=== PATIENT | female | born 1995 | race Hispanic/Latino ===

== ENCOUNTER 2023-12-31 11:15 | Outpatient (CLI) | payer MEDICAID, SELFPAY ==
--- NOTE | ~2023-12-31 | US_ITS ---
EXAMINATION: US OB follow up DATE: 12/31/2023 11:44 INDICATION: Size greater than dates. TECHNIQUE: Real-time ultrasound of the pelvis was performed. COMPARISON: None. FINDINGS: There is a single living fetus in vertex presentation. The placenta is anterior, 8.9 cm from the cer vix. The cervical length is 3.3 cm on transabdominal images, which is normal. heart rate is 142 beats per minute (bpm). The amniotic fluid index is 17.5 cm, which is normal. The following biometric data were obtained: Biparietal diameter (BPD): 7.3 cm; head circumference (HC): 27.7 cm; abdominal circumference (AC): 25 .8 cm; femur length (FL): 5.4 cm. These measurements are concordant. Estimated weight is 1394 g +/- 209 g, which correlates with the 85th percentile when 03/23/24 is used as estimated date of delivery. As single measurements, these parameters are each equal to the following estimated gestational ages: BPD: 29 weeks 3 days. HC: 30 weeks 2 days. AC: 30 weeks 0 days. FL: 28 weeks 3 days. estimated gestational age based solely on measurements from this exam is 29 weeks 4 days +/- 2 weeks 0 days. IMPRESSION: 1. Single living fetus in vertex presentation. 2. Estimated weight is 1394 g +/- 209 g, which correlates with the 85th percentile when 4 is used as estimated date of delivery. Reviewed, dictated and finalized at location A. IMPRESSION: 1. Single living fetus in vertex presentation. 2. Estimated weight is 1394 g +/- 209 g, which correlates with the 85th percentile when 03/23/24 is used as estimated date of delivery.
== END 2023-12-31 11:16 ==
PROVIDERS: PCP Advanced Practice Midwife; Visit Provider Advanced Practice Midwife
DX: O36.63X0 Maternal care for excessive fetal growth, third trimester, not applicable or unspecified (principal)
CPT/HCPCS: 76816

== ENCOUNTER 2024-03-17 18:48 | Inpatient (IN) | payer OTHER, SELFPAY ==
[2024-03-17] VITALS (46 sets, daily range): BP systolic 57–151; BP diastolic 28–122; PULSE 88–123; O2SAT 94–98; BMI 31.8
[2024-03-17 21:10] LABS: Basophils Percent Auto 0.2 % (0.2-1.2); Eosinophils Percent Auto 0.1 % (0-4.4); Hematocrit 35.5 % (37.0-47.0); Hemoglobin 12.1 g/dL (12.0-15.0); Immature Granulocyte Absolute 0.05 K/mm3 (0.00-0.031); Immature Granulocyte Percent A 0.5 % (0-0.5); Lymphocytes Absolute Auto 2.29 K/mm3 (0.9-3.2); Lymphocytes Percent Auto 21.3 % (18.3-44.2); Mean Corpuscular HGB Conc 34.1 g/dl (32-36); Mean Corpuscular Hemoglobin 28.6 pg (26-34); Mean Corpuscular Volume 83.9 fl (80-100); Mean Platelet Volume 12.6 fl (7.4-10.4); Monocytes Absolute Auto 0.8 K/mm3 (0.1-0.6); Neutrophils Absolute Auto 7.6 K/mm3 (1.3-6.7); Neutrophils Percent Auto 70.9 % (45.5-73.1); Platelet Count Result 139 k/mm3 (150-375); Red Blood Count 4.23 M/mm3 (4.2-5.4); Red Cell Distribution Width 15.3 % (11.5-14.5); White Blood Count 10.8 K/mm3 (4.5-10.0)
[2024-03-17] MEDS: LACTATED RINGERS 1,000 ML 125 ML IV CONT (21:23)
[2024-03-17 21:38] LABS: Rapid Plasma Reagin Non-Reactive (NonReactive)
--- NOTE | 2024-03-17 21:56 | LDADM ---
This patient, Leighann Gould, was admitted to Labor/Delivery/Recovery 106 on 03/17/24 at 18:48. Plans for labor, pain management and were discussed with patient. Patient/family oriented to hospital policies and general routines including ID bracelet, bed and alarms, visiting hours, pain management, procedures, bathroom and other care routines, personal items, smoking policy, room service/diet and guest tray routines, infant security routines, and visiting hours. Patient/Family are encouraged to report perceived risks to care and to ask questions if they do not understand what they are told or what they should do. See OBIX for further documentation.
--- NOTE | 2024-03-17 21:59 | WPDANESEPP ---
Anes - Eval Pre Procedure Procedure: labor epidural Date/Time: 03/17/24 21:59 Pre Op Diagnosis: Contractions Patient Data Age: 28 Gender: F Height: Weight: Last Vital Signs Pulse 94 03/17/24 21:45 BP 107/67 03/17/24 21:45 Allergies Allergy/AdvReac Type Severity Reaction Status Date / Time No Known Allergies Allergy Verified 03/17/24 21:07 Laboratory Tests 03/17/24 21:02 WBC 10.8 H K/mm3 (4.5-10.0) RBC 4.23 M/mm3 (4.2-5.4) Hgb 12.1 g/dL (12.0-15.0) Hct 35.5 L % (37.0-47.0) MCV 83.9 fl (80-100) MCH 28.6 pg (26-34) MCHC 34.1 g/dl (32-36) RDW 15.3 H % (11.5-14.5) Plt Count 139 L k/mm3 (150-375) MPV 12.6 H fl (7.4-10.4) Immature Gran % (Auto) 0.5 % (0-0.5) Neut % (Auto) 70.9 % (45.5-73.1) Lymph % (Auto) 21.3 % (18.3-44.2) Wilson % (Auto) 7.0 % (2.6-8.5) Eos % (Auto) 0.1 % (0-4.4) Baso % (Auto) 0.2 % (0.2-1.2) Lymph # (Auto) 2.29 K/mm3 (0.9-3.2) Wilson # (Auto) 0.8 H K/mm3 (0.1-0.6) Eos # (Auto) 0.0 K/mm3 (0-0.3) Baso # (Auto) 0.0 K/mm3 (0.0-0.1) Abs Immat Gran (auto) 0.05 H K/mm3 (0.00-0.031) Absolute Neuts (auto) 7.6 H K/mm3 (1.3-6.7) Absolute Nucleated RBC 0.000 K/mm3 (0.0-0.012) Nucleated RBC % 0.0 % (0.0-0.2) RPR Non-reactive (NonReactive) HIV 1&2 Ab/P24 Ag 4thGn Pending Blood Type O Positive Antibody Screen Pending Patient hx anesthesia problems: none Family hx anesthesia problems: none Results Review: All pre-operative results and documents have been reviewed as part of the pre-operative evaluation. Exam Day of Procedure 03/17/24 21:59 Patient weight: overweight Heart: regular rate and rhythm Lungs: normal air movement Airway: Mallampati scale Neurological: alert and oriented
[2024-03-17 22:02] LABS: HIV 1/2 Ab P24 Ag Result Negative (Negative)
[2024-03-18] VITALS (61 sets, daily range): BP systolic 84–118; BP diastolic 36–74; PULSE 73–136; RESP 16–18; TEMP 36.4–36.8; O2SAT 92–100
[2024-03-18] MEDS: LACTATED RINGERS 1,000 ML 125 ML IV CONT (01:50)
[2024-03-18] MEDS: OXYTOCIN 30 UNITS/NS 500 ML 30 UNITS/500 ML BAG 125 UNITS IV CONT (03:00)
[2024-03-18] MEDS: OXYTOCIN 30 UNITS/NS 500 ML 30 UNITS/500 ML BAG 999 UNITS IV CONT (03:29)
[2024-03-18 05:10] LABS: OBXCEM ROM Plus Positive
[2024-03-18] MEDS: WITCH HAZEL 40 PADS 1 PAD TOPICAL (06:41)
[2024-03-18] MEDS: BENZOCAINE 20% AER SPR (*SP) 56 GM CAN 1 SPRAY TOPICAL (06:42)
[2024-03-18] MEDS: MULTIVIT/MIN/PREN/FOL AC/IRON TABLET 1 TAB PO (07:27)
[2024-03-18] MEDS: ACETAMINOPHEN 325 MG TABLET 650 MG PO (07:28)
--- NOTE | 2024-03-18 10:30 | PC.NURSE ---
Patient requested a hand pump. Pulled a pump kit and instructed on use and cleaning of the pump parts. Mom is aware that we can provide an electric pump if she desires. She states she had better results with a hand pump in the past and would like to try that. Mom educated that pumping should not hurt or pinch. Reviewed use and storage of breastmilk. Mom verbalized understanding and will call for further feeding assistance as needed. Reported to primary RN.
--- NOTE | 2024-03-18 17:06 | PC.NURSE ---
1500. This RN called to patients room for assistance with feeding. Mom reports she would like help getting baby to take a bottle. Mother states it is her intention to combo feed. This RN reviewed appropriate feedings for a baby within the first 24 hours of life, and asked if mom would like to put baby s2s and try some hand expression to get baby to take some colostrum. Mom declined at this time, and requests that baby has formula at this time per her preference. This RN attempted to feed baby with formula per moms request, baby with no feeding cues at this time. Sucking reflex stimulated with the nipple to the bottle and baby sucked a few times and then did not suck again despite multiple attempts. Mom Encouraged mom to do s2s at this time and try again in 20-30 min. Encouraged mother to breastfeed infant every 2-3 hours, watching for early feeding cues. Reviewed with mom and dad if is sleepy, unwrap and place baby skin to skin. Discussed signs that is effectively , i.e. sufficient voids and stools, jaundice within normal limits, <10% weight loss from . Mother educated on milk production, supply and demand, and expectations for in the immediate period. Encouraged feeding on demand and feeding durations of 15 minutes or greater. Discussed breast/nipple care with good hand hygiene, signs of a correct latch, listening for swallows and documenting feedings on the feeding sheet. Mother instructed to call for assistance if infant will not feed every 3 hours, if there is discomfort with , or if mother has any other questions or concerns. resources provided including the Mom and Baby Guide. Mother verbalized understanding. Updated patient?s primary RN with education provided.
[2024-03-18] MEDS: IBUPROFEN 600 MG TABLET PO (20:30)
[2024-03-19 04:50] LABS: Hematocrit 32.7 % (37.0-47.0)
--- NOTE | 2024-03-19 06:47 | P.PNOB_ITS ---
OB - PN: Subj Subjective Date/time seen: 03/19/24 06:47 Patient comments: no complaints and pain well controlled baby status: doing well OB - PN: Obj Data Labs 03/19/24 03:11 Labs: Laboratory Results - last 24 hr 03/19/24 03:11 Hgb 11.0 L Hct 32.7 L OB - PN A/P Plan day: 1 Plan: routine care, discharge home and follow up 6 weeks Time Spent With Patient Time: Total time spent is greater than 50% in coordination of care (as documented) at patient's floor/unit and/or counseling patient: Time with patient: less than 15 minutes Exam Const: General: cooperative, healthy appearing and comfortable Nutritional Appearance: average body habitus Orientation/consciousness: oriented to person, oriented to place and oriented to time Resp: Effort & Inspection: normal respiratory effort Cardio: Rate: regular rate Rhythm: regular rhythm Heart sounds: S1 n ormal heart sound present and S2 normal heart sound present GI: Inspection: normal to inspection
--- NOTE | 2024-03-19 06:49 | PM.DS ---
DS: Admitting Diagnosis Discharge Date 03/19/2024 Admitting Diagnosis term DS: Discharge Diagnosis Discharge Diagnosis (1) Term : Code(s): Z34.90 - Encounter for supervision of normal , unspecified, unspecified trimester Status: Acute DS: Summary Hospital Course Reason for hospitalization: the patient was delivered on 03/18/2024 early in the a.m.. Hospital Course: Patient's hospital course was unremarkable. She was eating regular diet, ambulating, voiding without difficulty, and generally without complaints. Time Spent with Patient Time attestation: Total time spent providing and/or coordinating discharge services: Exam Const: General: cooperative, healthy appearing and comfortable Orientation/consciousness: oriented to person, oriented to place and oriented to time Resp: Effort & Inspection: normal respiratory effort Cardio: Rate: regular rate Rhythm: regular rhythm Heart sounds: S1 normal heart sound present and S2 normal heart sound present GI: Inspection: normal to inspection DS: Data Data Completed and Pending Labs on day of discharge: Labs from last 24 hours 03/19/24 03:11 Hgb 11.0 L Hct 32.7 L Discharge Plan Discharge Attending physician on discharge: Keara Abreu Discharging Clinician: Marcus Herrera Patient Disposition: Home, Self-Care Activity: may shower and pelvic rest Diet: heart healthy Patient Instructions: Antibiotic Form Stand Alone Forms: General Discharge Information Follow-up/Referrals: Keara Abreu MD [Physician] - Discharge Medications: Continued PNV [id number] [] 28 mg iron- 800 mcg tablet 1 tablet PO DAILY Date of admission: 03/17/24 18:48 Primary Care Provider: Sasha Elise Admitting Provider: Keara Abreu Attending physician on admission: Keara Abreu Condition: Stable
[2024-03-19] MEDS: MULTIVIT/MIN/PREN/FOL AC/IRON TABLET 1 TAB PO (08:09)
[2024-03-19 08:10] VITALS: BP 107/69; PULSE 75; RESP 16; TEMP 36.3
--- NOTE | 2024-03-19 13:10 | PC.NURSE ---
Consulted with patient to assess needs related to . Discussed with mother her successes, concerns and any questions she has. We reviewed working with the , supporting breast. Encouraged understanding the benefits of skin to skin, responding to feeding cues, frequencies of feeding 8-12 times in 24 hours (approximately 2-3 hours), duration of feedings, milk production, intake/output feeding sheet. Reviewed positioning and alignment, supporting breast, off-centered (asymmetrical latch) and leading with the chin with big, open, wide gape. latched to the [left] breast in [cross cradle] position. He suckled once or twice. The was [not able] to maintain latch. We tried to stimulate him to suck and relatch without success. Advised mother to only try for 10 minutes if infant isn't giving any effort at all. Then she should supplement and pump. We discussed chin and cheek support when supplementing and feeding the bottle shouldn't take more than 20 minutes. Encouraged mother to call for help if she isn't able to feed at least 15ml. Mother voiced understanding of the education shared, to call for assistance if the infant does not latch or if there is discomfort with . Reported to the Primary RN.
[2024-03-19] MEDS: IBUPROFEN 600 MG TABLET PO (16:36)
[2024-03-19 19:00] VITALS: BP 110/63; PULSE 73; RESP 18; TEMP 36.6
[2024-03-20] MEDS: IBUPROFEN 600 MG TABLET PO (04:40)
[2024-03-20 07:58] VITALS: BP 105/60; PULSE 74; RESP 20; TEMP 36.7; O2SAT 98
[2024-03-20] MEDS: MULTIVIT/MIN/PREN/FOL AC/IRON TABLET 1 TAB PO (09:01)
[2024-03-20] MEDS: DOCUSATE SODIUM 100 MG CAPSULE PO (09:01)
--- NOTE | 2024-03-20 09:26 | PM.OBPNVD ---
OB - PN: Subj Subjective Date/time seen: 03/20/24 09:26 Patient comments: no complaints and pain well controlled baby status: doing well and nursing well OB - PN: Obj Data Labs 03/19/24 03:11 OB - PN A/P Plan day: 2 Plan: routine care, discharge home and follow up 6 weeks Time Spent With Patient Time: Total time spent is greater than 50% in coordination of care (as documented) at patient's floor/unit and/or counseling patient: Time with patient: less than 15 minutes Exam Const: General: cooperative, healthy appearing and comfortable Nutritional Appearance: average body habitus Orientation/consciousness: oriented to person, oriented to place and oriented to time Resp: Effort & Inspection: normal respiratory effort Cardio: Rate: regular rate Rhythm: regular rhythm Heart sounds: S1 normal heart sound present and S2 normal heart sound present GI: Inspection: normal to inspection
[2024-03-21 10:34] VITALS: BP 110/71; PULSE 84; RESP 18; TEMP 36.9; O2SAT 99
--- NOTE | 2024-03-24 07:52 | PM.OBPRVD ---
OB - Vaginal Delivery Note Procedure Delivery date: 03/18/24 Induction method: None Delivery monitor: External FHT Route of delivery: Laceration Description: Perineal - 1st Degree Delivery repair: vicryl (3-0) Specimen: No Quantitative Blood Loss (ml): 200 Disposition: Floor Complications: No immediate complications Baby Date of : [birth year]/24 gender: Male Weight (pounds): 7 Weight (ounces): 15 presentation: vertex position: Left Occiput Anterior Placenta delivery description: Spontaneous Cord Vessel Description: 3 Vessels score one minute: 8 score five minutes: 9
== END 2024-03-20 11:50 | disposition home or self-care (01) | DRG 560 ==
LOC: ANHLDR 21:08 → ANHOB2 03-18 06:55
PROVIDERS: Admitting Provider Obstetrics & Gynecology Gynecology; PCP Advanced Practice Midwife; Visit Provider Obstetrics & Gynecology Gynecology
DX: O69.81X0 Labor and delivery complicated by cord around neck, without compression, not applicable or unspecified (principal); Z37.0 Single live birth; Z3A.39 39 weeks gestation of pregnancy; O70.0 First degree perineal laceration during delivery
CPT/HCPCS: 36415; 84112; 85014; 85018; 85025; 86592; 86703; 86850; 86900; 86901; A9270; G0432; J2590; J2795; J7120